=== PATIENT | female | born 1990 | race Caucasian/White ===

== ENCOUNTER 2017-08-14 07:24 | Day surgery (SDC) | payer MEDICAID ==
[~2017-08-14] VITALS: Ht 165.1 cm; Wt 68.0 kg
[2017-08-14] MEDS ORDERED: LIDOCAINE VISCOUS 2% 15ML UD ONE (07:58)
[2017-08-14] MEDS ORDERED: FLUMAZENIL 0.1 MG/ML INJ 10ML MDV IV ONE (07:59)
[2017-08-14] MEDS ORDERED: fentaNYL CITRATE 100 MCG/2 ML VL ONE (07:59)
[2017-08-14] MEDS ORDERED: MIDAZOLAM HCL 1MG/1ML-2 ML VIAL ONE (07:59)
[2017-08-14] MEDS ORDERED: NALOXONE HCL 0.4 MG/ML VIAL ONE (07:59)
[2017-08-14] MEDS ORDERED: LIDOCAINE VISCOUS 2% 15ML UD PO ONE (08:00)
[2017-08-14] MEDS ORDERED: MIDAZOLAM HCL 5 MG/ML-1ML VIAL IV ONE (08:00)
[2017-08-14] MEDS ORDERED: fentaNYL CITRATE 100 MCG/2 ML VL IV ONE (08:00)
== END 2017-08-14 10:10 | disposition home or self-care (01) ==
LOC: CATH 07:24
PROVIDERS: ATTEND Internal Medicine
DX: I35.1 Nonrheumatic aortic (valve) insufficiency (principal); I50.9 Heart failure, unspecified
CPT/HCPCS: 93312; J3010; 36415; 84702; 99152; 99153; J2250